=== PATIENT | female | born 1980 | race Caucasian/White ===

== ENCOUNTER 2017-04-23 20:08 | Emergency (ER) | payer OTHER, SELFPAY ==
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
== END 2017-04-23 22:38 | disposition home or self-care (01) ==
LOC: ERS 20:08
DX: M25.561 Pain in right knee (principal); M54.5 Low back pain; F41.9 Anxiety disorder, unspecified; F17.210 Nicotine dependence, cigarettes, uncomplicated; V89.2XXA Person injured in unspecified motor-vehicle accident, traffic, initial encounter
CPT/HCPCS: 72072; 72100